=== PATIENT | male | born 1975 | race Caucasian/White ===

== ENCOUNTER 2016-06-03 07:09 | Inpatient (IN) | payer MEDICARE, MEDICAID ==
[2016-06-03] VITALS (15 sets, daily range): BP systolic 120–158; BP diastolic 72–98
[~2016-06-03] VITALS: Ht 167.6 cm; Wt 58.6 kg
[~2016-06-03 07:09] MED LIST: AMLO10TA80 PO; ATOR10TA PO; CARV12.545 PO; LOSA100T14 PO; MINO2.5T2 PO; PROT40 PO; SEVE800T8 PO; SUCR1ORA2 PO; ZOLP5TAB2 PO
[2016-06-03] MEDS ORDERED: ONDANSETRON HCL 4MG/2ML VIAL IV STA (08:27)
[2016-06-03] MEDS ORDERED: PANTOPRAZOLE 80 MG in SODIUM CHLORIDE 0.9% 100 ML IV STA (08:27)
[2016-06-03] MEDS ORDERED: PANTOPRAZOLE SODIUM 40 MG/VIAL IV STA (08:27)
[2016-06-03] MEDS ORDERED: MORPHINE SULFATE 4 MG/ML CPJ (NOT FOR IM USE) IV STA (08:27)
[2016-06-03] MEDS ORDERED: SODIUM CHLORIDE 0.9% 1000ML BAG (SEPSIS BOLUS) IV ONE (08:30)
[2016-06-03 08:46] LABS: MEAN CORPUSCULAR HEMOGLOBIN 32.3 pg (28.0-32.0); MEAN CORPUSCULAR HGB CONC 33.9 g/dL (31.0-37.0); MEAN CORPUSCULAR VOLUME 95.1 fL (80.0-94.0); MEAN PLATELET VOLUME 7.2 fl (7.4-10.4); PLATELET 113 x1000/uL (130-400); RED BLOOD CELL COUNT 1.72 mill/uL (4.7-6.1); RED CELL DISTRIBUTION WIDTH 16.5 % (11.6-14.6)
[2016-06-03 08:55] LABS: PARTIAL THROMBOPLASTIN TIME 33.6 sec (24.0-34.0); PROTHROMBIN TIME 10.8 sec
[2016-06-03 08:57] LABS: DIFFERENTIAL COMMENT 1
[2016-06-03 09:03] LABS: HEMATOCRIT. 16.4 % (42.0-52.0); HEMOGLOBIN. 5.6 g/dL (14.0-18.0)
[2016-06-03 09:07] LABS: ALANINE AMINOTRANSFERASE 41 IU/L (13-61); ALBUMIN 3.1 g/dL (3.4-5.0); ANION GAP 29; CALCIUM 7.8 mg/dL (8.5-10.1); CARBON DIOXIDE 11 mEq/L (21-32); CHLORIDE 97 mEq/L (98-107); INDEX HEMOLYSI 1 (1-3); INDEX ICTERIC 1 (1-4); INDEX LIPEMIC 1 (1-3)
[2016-06-03] MEDS ORDERED: PANTOPRAZOLE SODIUM 40 MG/VIAL IV ONE (09:11)
[2016-06-03 09:14] LABS: eGFR 2 mL/min (>60)
[2016-06-03 09:16] LABS: UREA NITROGEN BLOOD 146 mg/dL (7-21)
[2016-06-03 09:25] LABS: ANISOCYTOSIS 1+; PLATELET ESTIMATE SLIGHTLY DECREASED
[2016-06-03] MEDS ORDERED: POTASSIUM CHLORIDE 20MEQ/15ML UDC PO ONE (09:30)
[2016-06-03] MEDS ORDERED: POTASSIUM CHLORIDE 20 MEQ/PACKET PO ONE (09:45)
[2016-06-03] MEDS ORDERED: MAGNESIUM/ALUMINUM HYDROXIDE/SIMETHICONE 30ML UDC PO PRN (10:15)
[2016-06-03] MEDS ORDERED: ONDANSETRON HCL 4MG/2ML VIAL IV PRN (10:15)
[2016-06-03] MEDS ORDERED: DIPHENHYDRAMINE 50MG/ML VIAL IV PRN (10:15)
[2016-06-03] MEDS ORDERED: DOCUSATE SODIUM 100MG CAPSULE PO PRN (10:15)
[2016-06-03] MEDS ORDERED: ACETAMINOPHEN 325MG TABLET PO PRN (10:15)
[2016-06-03] MEDS ORDERED: GUAIFENESIN 200MG/10ML SUGAR FREE UDC PO PRN (10:15)
[2016-06-03] MEDS ORDERED: CLONIDINE 0.1MG TABLET PO PRN (10:15)
[2016-06-03] MEDS ORDERED: IPRATROPIUM/ALBUTEROL 0.5-3(2.5)MG/3ML NEB INH PRN (10:15)
[2016-06-03] MEDS ORDERED: NITROGLYCERIN 0.4MG TABLET SL SL PRN (10:15)
[2016-06-03] MEDS ORDERED: MANNITOL 12.5G (25%) VIAL 50ML IV NR (11:45)
[2016-06-03] MEDS: SEVELAMER CARBONATE 800 MG TABLET PO SCH ×2 (13:00→17:40)
[2016-06-03] MEDS: HYDRALAZINE HCL 50MG TABLET PO SCH ×2 (14:00→21:28)
[2016-06-03] MEDS ORDERED: PANTOPRAZOLE 80 MG in SODIUM CHLORIDE 0.9% 80 ML IV SCH (14:00)
[2016-06-03] MEDS: MORPHINE SULFATE 4 MG/ML CPJ (NOT FOR IM USE) IV PRN ×2 (17:40→23:41)
[2016-06-03 20:16] LABS: HEMATOCRIT 24.3 % (42.0-52.0); HEMOGLOBIN 8.3 g/dL (14.0-18.0)
[2016-06-03] MEDS ORDERED: EPOETIN ALFA 4000UNITS/ML VIAL SUBCUT SCH (21:00)
[2016-06-03] MEDS: ZOLPIDEM TARTRATE 5MG TABLET PO PRN (21:28)
[2016-06-03] MEDS: PANTOPRAZOLE 80 MG in SODIUM CHLORIDE 0.9% 80 ML IV SCH (22:25)
[2016-06-04] VITALS (15 sets, daily range): BP systolic 112–155; BP diastolic 64–90
[2016-06-04 06:10] LABS: HEMOGLOBIN. 8.3 g/dL (14.0-18.0); MEAN CORPUSCULAR HEMOGLOBIN 30.9 pg (28.0-32.0); MEAN CORPUSCULAR HGB CONC 34.5 g/dL (31.0-37.0); MEAN CORPUSCULAR VOLUME 89.6 fL (80.0-94.0); MEAN PLATELET VOLUME 7.6 fl (7.4-10.4); PLATELET 108 x1000/uL (130-400); RED BLOOD CELL COUNT 2.68 mill/uL (4.7-6.1); RED CELL DISTRIBUTION WIDTH 15.1 % (11.6-14.6)
[2016-06-04] MEDS: MORPHINE SULFATE 4 MG/ML CPJ (NOT FOR IM USE) IV PRN (06:21)
[2016-06-04] MEDS: HYDRALAZINE HCL 50MG TABLET PO SCH ×3 (06:22→21:07)
[2016-06-04 06:51] LABS: CALCIUM 7.9 mg/dL (8.5-10.1); MAGNESIUM 2.2 mg/dL (1.8-2.4); PHOSPHORUS 4.6 mg/dL (2.5-4.9)
[2016-06-04 06:52] LABS: DIFFERENTIAL COMMENT 1
[2016-06-04] MEDS: SEVELAMER CARBONATE 800 MG TABLET PO SCH ×3 (08:00→17:50)
[2016-06-04] MEDS: FOLIC ACID/VITAMIN B COMP W-C TABLET PO SCH (08:12)
[2016-06-04] MEDS: AMLODIPINE 10MG TABLET PO SCH (08:12)
[2016-06-04] MEDS: PANTOPRAZOLE SODIUM 40 MG/VIAL IV SCH ×2 (08:15→20:38)
[2016-06-04] MEDS: PANTOPRAZOLE 80 MG in SODIUM CHLORIDE 0.9% 80 ML IV SCH (09:08)
[2016-06-04] MEDS ORDERED: POTASSIUM CHLORIDE INJ 40 MEQ in DEXT 5% WATER 250 ML IV ONE (10:30)
[2016-06-04] MEDS ORDERED: SODIUM CHLORIDE 0.9% 10ML VIAL ONE (10:35)
[2016-06-04] MEDS ORDERED: SIMETHICONE 40 MG/0.6 ML 30ML ONE ×2 (10:35→14:30)
[2016-06-04 10:53] LABS: PLATELET ESTIMATE DECREASED
[2016-06-04] MEDS: MORPHINE SULFATE 2 MG/ML CPJ (NOT FOR IM USE) IV PRN ×2 (13:07→19:04)
[2016-06-04] MEDS ORDERED: MIDAZOLAM HCL 5 MG/5 ML VIAL ONE (14:30)
[2016-06-04] MEDS ORDERED: FENTANYL CITRATE/PF 50MCG/ML 2ML VIAL ONE (14:30)
[2016-06-04] MEDS ORDERED: FENTANYL CITRATE/PF 50MCG/ML 2ML VIAL IV PRN (14:37)
[2016-06-04] MEDS ORDERED: MIDAZOLAM HCL 5 MG/5 ML VIAL IV PRN (14:37)
[2016-06-04] MEDS: ZOLPIDEM TARTRATE 5MG TABLET PO PRN (20:38)
[2016-06-05] VITALS (9 sets, daily range): BP systolic 110–140; BP diastolic 66–90
[2016-06-05] MEDS: MORPHINE SULFATE 2 MG/ML CPJ (NOT FOR IM USE) IV PRN ×3 (02:09→15:12)
[2016-06-05] MEDS: TRAMADOL 50MG TABLET PO PRN ×2 (04:56→15:11)
[2016-06-05] MEDS: HYDRALAZINE HCL 50MG TABLET PO SCH ×2 (06:00→15:09)
[2016-06-05] MEDS: FOLIC ACID/VITAMIN B COMP W-C TABLET PO SCH (08:43)
[2016-06-05] MEDS: PANTOPRAZOLE SODIUM 40 MG/VIAL IV SCH (08:43)
[2016-06-05] MEDS: AMLODIPINE 10MG TABLET PO SCH (08:47)
[2016-06-05] MEDS: SEVELAMER CARBONATE 800 MG TABLET PO SCH ×2 (08:54→13:07)
[2016-06-05 12:57] LABS: HEMATOCRIT. 26.4 % (42.0-52.0); HEMOGLOBIN. 9.2 g/dL (14.0-18.0); MEAN CORPUSCULAR HEMOGLOBIN 31.2 pg (28.0-32.0); MEAN CORPUSCULAR HGB CONC 34.7 g/dL (31.0-37.0); MEAN CORPUSCULAR VOLUME 89.7 fL (80.0-94.0); MEAN PLATELET VOLUME 7.8 fl (7.4-10.4); PLATELET 116 x1000/uL (130-400); RED BLOOD CELL COUNT 2.94 mill/uL (4.7-6.1); RED CELL DISTRIBUTION WIDTH 15.8 % (11.6-14.6); WHITE BLOOD COUNT 3.8 x1000/uL (4.5-11.0)
[2016-06-05 13:00] LABS: DIFFERENTIAL COMMENT 1
[2016-06-05 13:13] LABS: ALANINE AMINOTRANSFERASE 26 IU/L (13-61); ALBUMIN 2.2 g/dL (3.4-5.0); ANION GAP 13; CALCIUM 7.3 mg/dL (8.5-10.1); CARBON DIOXIDE 25 mEq/L (21-32); CHLORIDE 102 mEq/L (98-107); INDEX HEMOLYSI 1 (1-3); INDEX ICTERIC 1 (1-4); INDEX LIPEMIC 1 (1-3); UREA NITROGEN BLOOD 29 mg/dL (7-21); eGFR 7 mL/min (>60)
[2016-06-05 13:24] LABS: PLATELET ESTIMATE SLIGHTLY DECREASED
== END 2016-06-05 18:00 | disposition left against medical advice (07) | DRG 368 ==
LOC: ER 07:51 → 5EST 09:56
PROVIDERS: ADMIT Internal Medicine; ATTEND Internal Medicine
PROC: 30233N1 Transfusion of Nonautologous Red Blood Cells into Peripheral Vein, Percutaneous Approach (ICD-10-PCS; 2016-06-03)
PROC: 5A1D60Z (ICD-10-PCS; 2016-06-03)
PROC: 0W9G3ZX Drainage of Peritoneal Cavity, Percutaneous Approach, Diagnostic (ICD-10-PCS; 2016-06-04)
PROC: 0DB68ZX Excision of Stomach, Via Natural or Artificial Opening Endoscopic, Diagnostic (ICD-10-PCS; principal; 2016-06-04 15:00)
DX: K22.6 Gastro-esophageal laceration-hemorrhage syndrome (principal); N18.6 End stage renal disease; D62 Acute posthemorrhagic anemia; E87.1 Hypo-osmolality and hyponatremia; I12.0 Hypertensive chronic kidney disease with stage 5 chronic kidney disease or end stage renal disease; K76.6 Portal hypertension; N03.9 Chronic nephritic syndrome with unspecified morphologic changes; N25.81 Secondary hyperparathyroidism of renal origin; E44.0 Moderate protein-calorie malnutrition; D53.9 Nutritional anemia, unspecified; E87.6 Hypokalemia; F10.20 Alcohol dependence, uncomplicated; I44.0 Atrioventricular block, first degree; I51.7 Cardiomegaly; K29.50 Unspecified chronic gastritis without bleeding; K21.0 Gastro-esophageal reflux disease with esophagitis; M54.9 Dorsalgia, unspecified; K29.80 Duodenitis without bleeding; K43.9 Ventral hernia without obstruction or gangrene; K44.9 Diaphragmatic hernia without obstruction or gangrene; K70.31 Alcoholic cirrhosis of liver with ascites; K76.0 Fatty (change of) liver, not elsewhere classified; K80.20 Calculus of gallbladder without cholecystitis without obstruction; Z82.49 Family history of ischemic heart disease and other diseases of the circulatory system; Z87.19 Personal history of other diseases of the digestive system; Z91.19 Patient's noncompliance with other medical treatment and regimen; Z99.2 Dependence on renal dialysis; Z98.890 Other specified postprocedural states
CPT/HCPCS: 36415; 36430; 49083; 71010; 80048; 80053; 80061; 82306; 83036; 83735; 83970; 84100; 85014; 85018; 85025; 85610; 85730; 86850; 86900; 86920; 87493; 88305; 88312; 88313; 93005; 96374; 96375; 99285; A4216; C9113; J0885; J2150; J2250; J2270; J2405; J3010; J3480; J7030; J7050; J7060; P9016

== ENCOUNTER 2016-08-30 04:07 | Emergency (ER) | payer MEDICARE, MEDICAID ==
[~2016-08-30] VITALS: Ht 170.2 cm; Wt 57.0 kg
[~2016-08-30 04:07] MED LIST changes: -ATOR10TA PO; +HYDR-523 PO
[2016-08-30] MEDS ORDERED: SODIUM CHLORIDE 0.9% 1,000 ML IV ONE (06:21)
[2016-08-30] MEDS ORDERED: MORPHINE SULFATE 4 MG/ML CPJ (NOT FOR IM USE) IV STA (06:21)
[2016-08-30] MEDS ORDERED: ONDANSETRON HCL 4MG/2ML VIAL IV STA (06:21)
[2016-08-30 06:43] LABS: BASOPHILS % 1.3 % (0.0-2.0); EOSINOPHILS % 1.2 % (0.0-5.0); HEMATOCRIT. 35.2 % (42.0-52.0); HEMOGLOBIN. 12.1 g/dL (14.0-18.0); LYMPHOCYTES % 20.6 % (20.0-50.0); MEAN CORPUSCULAR HEMOGLOBIN 31.2 pg (28.0-32.0); MEAN CORPUSCULAR VOLUME 90.7 fL (80.0-94.0); MEAN PLATELET VOLUME 8.9 fl (7.4-10.4); MONOCYTES % 5.4 % (2.0-8.0); NEUTROPHILS % 71.5 % (40.0-76.0); PLATELET 201 x1000/uL (130-400); RED BLOOD CELL COUNT 3.89 mill/uL (4.7-6.1); RED CELL DISTRIBUTION WIDTH 16.6 % (11.6-14.6)
[2016-08-30] MEDS ORDERED: PANTOPRAZOLE SODIUM 40 MG/VIAL IV STA (06:43)
[2016-08-30 06:50] LABS: INR 1.1; PROTHROMBIN TIME 11.8 sec
[2016-08-30 07:00] LABS: CHLORIDE 101 mEq/L (98-107)
[2016-08-30 07:22] LABS: CARBON DIOXIDE 25 mEq/L (21-32)
[2016-08-30] MEDS ORDERED: MORPHINE SULFATE 4 MG/ML CPJ (NOT FOR IM USE) IV ONE ×2 (07:30→09:45)
[2016-08-30 10:41] VITALS: BP 140/88
[2016-08-30] MEDS ORDERED: SODIUM BICARBONATE 4% (2.4MEQ) 5ML VIAL IV ONE (12:27)
[2016-08-30] MEDS ORDERED: LIDOCAINE HCL 1% 20ML VIAL (Pyxis) INJ ONE (12:27)
== END 2016-08-30 12:53 | disposition home or self-care (01) ==
LOC: ER 07:13
DX: K46.9 Unspecified abdominal hernia without obstruction or gangrene (principal); R18.8 Other ascites; N18.6 End stage renal disease; Z99.2 Dependence on renal dialysis
CPT/HCPCS: 36415; 49083; 74176; 80053; 83690; 85025; 85610; 86850; 86900; 86901; 87070; 87205; 88108; 88312; 89050; 93005; 96361; 96374; 96375; 96376; 99285; C9113; J2270; J2405; J3490; J7030

== ENCOUNTER 2016-09-04 19:42 | Inpatient (IN) | payer MEDICARE, MEDICAID ==
[~2016-09-04] VITALS: Ht 167.6 cm; Wt 54.0 kg
[2016-09-04] MEDS ORDERED: ONDANSETRON HCL 4MG/2ML VIAL IV STA (21:09)
[2016-09-04] MEDS ORDERED: MORPHINE SULFATE 4 MG/ML CPJ (NOT FOR IM USE) IV STA (21:09)
[2016-09-04 21:34] LABS: BASOPHILS % 1.4 % (0.0-2.0); CHLORIDE 101 mEq/L (98-107); EOSINOPHILS % 0.3 % (0.0-5.0); LYMPHOCYTES % 37.2 % (20.0-50.0); MEAN CORPUSCULAR HEMOGLOBIN 31.9 pg (28.0-32.0); MEAN CORPUSCULAR VOLUME 94.1 fL (80.0-94.0); MEAN PLATELET VOLUME 8.1 fl (7.4-10.4); MONOCYTES % 8.6 % (2.0-8.0); NEUTROPHILS % 52.5 % (40.0-76.0); PLATELET 230 x1000/uL (130-400); RED BLOOD CELL COUNT 2.01 mill/uL (4.7-6.1); RED CELL DISTRIBUTION WIDTH 20.4 % (11.6-14.6)
[2016-09-04 21:37] LABS: HEMATOCRIT. 18.9 % (42.0-52.0); HEMOGLOBIN. 6.4 g/dL (14.0-18.0)
[2016-09-04 21:38] LABS: INR 1.2; PROTHROMBIN TIME 12.8 sec
[2016-09-04 21:41] LABS: CARBON DIOXIDE 32 mEq/L (21-32)
[2016-09-04 21:43] LABS: ETHANOL BLOOD < 10 mg/dL
[2016-09-04 21:46] LABS: TROPONIN I 0.16 ng/mL (0.00-0.04)
[2016-09-04 21:49] LABS: BG BASE EXCESS 8.7 mmol/L (-2.0-2.0); BG CARBOXYHEMOGLOBIN 0.5 % (0.5-1.5); BG DEOXYHEMOGLOBIN 3.5 % (0.0-5.0); BG FRACTION INSPIRED OXYGEN 21; BG HCO3 ACT 31.9 mmol/L (22.0-26.0); BG METHEMOGLOBIN 0.2 % (0.0-1.5); BG OXYGEN SATURATION 96.5 % (92.0-98.5); BG OXYHEMOGLOBIN 95.8 % (94.0-97.0); BG PCO2 37.6 mmHg (35.0-45.0); BG PH 7.546 (7.350-7.450); BG PO2 90.7 mmHg (75.0-100.0); BG SAMPLE SITE RIGHT RADIAL; BG TOTAL HEMOGLOBIN 6.3 g/dL (12.0-18.0); BG VENT MODE ROOM AIR
[2016-09-04] MEDS ORDERED: PANTOPRAZOLE SODIUM 40 MG/VIAL IV STA (22:45)
[2016-09-04] MEDS ORDERED: ACETAMINOPHEN 325MG TABLET PO PRN (23:00)
[2016-09-04] MEDS ORDERED: DOCUSATE SODIUM 100MG CAPSULE PO PRN (23:00)
[2016-09-04] MEDS ORDERED: NA PHOS,M-B/NA PHOS,DI-BA ENEMA 118ML PR PRN (23:00)
[2016-09-04] MEDS ORDERED: IPRATROPIUM/ALBUTEROL 0.5-3(2.5)MG/3ML NEB INH PRN (23:00)
[2016-09-04] MEDS ORDERED: ONDANSETRON HCL 4MG/2ML VIAL IV PRN (23:00)
[2016-09-04] MEDS ORDERED: GUAIFENESIN 200MG/10ML SUGAR FREE UDC PO PRN (23:00)
[2016-09-04] MEDS ORDERED: MAGNESIUM/ALUMINUM HYDROXIDE/SIMETHICONE 30ML UDC PO PRN (23:00)
[2016-09-04] MEDS ORDERED: CLONIDINE 0.1MG TABLET PO PRN (23:00)
[2016-09-04] MEDS ORDERED: LORAZEPAM 2MG/ML CPJ IV PRN (23:00)
[2016-09-04] MEDS ORDERED: OCTREOTIDE ACETATE 50 MCG/ML 1ML IV NR (23:22)
[2016-09-05] VITALS (22 sets, daily range): BP systolic 120–166; BP diastolic 75–99
[2016-09-05] MEDS ORDERED: SODIUM CHLORIDE 0.45% 1,000 ML IV SCH (00:17)
[2016-09-05] MEDS: HYDROMORPHONE HCL/PF 2MG/ML CPJ IV PRN ×5 (00:29→11:03)
[2016-09-05] MEDS: DIPHENHYDRAMINE 50MG/ML VIAL IV PRN ×4 (00:44→21:38)
[2016-09-05 08:15] LABS: HEMATOCRIT. 27.2 % (42.0-52.0); HEMOGLOBIN. 9.3 g/dL (14.0-18.0); MEAN CORPUSCULAR HEMOGLOBIN 31.2 pg (28.0-32.0); MEAN CORPUSCULAR VOLUME 91.2 fL (80.0-94.0); MEAN PLATELET VOLUME 8.2 fl (7.4-10.4); PLATELET 216 x1000/uL (130-400); RED BLOOD CELL COUNT 2.98 mill/uL (4.7-6.1); RED CELL DISTRIBUTION WIDTH 16.8 % (11.6-14.6)
[2016-09-05] MEDS: MULTIVITAMINS,THER W-MINERALS TABLET PO SCH (08:44)
[2016-09-05] MEDS: FOLIC ACID 1MG TABLET PO SCH (08:45)
[2016-09-05] MEDS: FERROUS SULFATE 325MG TABLET PO SCH (08:45)
[2016-09-05 08:47] LABS: CARBON DIOXIDE 34 mEq/L (21-32); CHLORIDE 102 mEq/L (98-107); HDL CHOLESTEROL 33 mg/dL (40-59); LDL CHOLESTEROL 52 mg/dL (5-100)
[2016-09-05 11:12] LABS: PLATELET ESTIMATE NORMAL
[2016-09-05] MEDS: HYDROCODONE/ACETAMINOPHEN 10/325MG TABLET PO PRN (18:30)
[2016-09-05] MEDS: LOSARTAN POTASSIUM 50 MG TABLET PO SCH ×2 (18:31→20:36)
[2016-09-05] MEDS: CARVEDILOL 6.25 MG TABLET PO SCH (20:38)
[2016-09-06] VITALS (10 sets, daily range): BP systolic 123–153; BP diastolic 77–91
[2016-09-06] MEDS: HYDROCODONE/ACETAMINOPHEN 10/325MG TABLET PO PRN ×3 (04:13→16:05)
[2016-09-06 06:57] LABS: HEMATOCRIT. 25.7 % (42.0-52.0); HEMOGLOBIN. 8.7 g/dL (14.0-18.0); MEAN CORPUSCULAR HEMOGLOBIN 31.2 pg (28.0-32.0); MEAN PLATELET VOLUME 8.3 fl (7.4-10.4); PLATELET 205 x1000/uL (130-400); RED BLOOD CELL COUNT 2.79 mill/uL (4.7-6.1); RED CELL DISTRIBUTION WIDTH 16.7 % (11.6-14.6)
[2016-09-06 07:25] LABS: CARBON DIOXIDE 33 mEq/L (21-32); CHLORIDE 104 mEq/L (98-107); CREATINE KINASE 25 IU/L (39-308); CREATINE KINASE MB FRACTION 1.7 ng/mL (0.5-3.6); HDL CHOLESTEROL 35 mg/dL (40-59); LDL CHOLESTEROL 49 mg/dL (5-100); TROPONIN I 0.21 ng/mL (0.00-0.04)
[2016-09-06 08:38] LABS: PLATELET ESTIMATE NORMAL
[2016-09-06] MEDS: FERROUS SULFATE 325MG TABLET PO SCH (09:26)
[2016-09-06] MEDS: MULTIVITAMINS,THER W-MINERALS TABLET PO SCH (09:26)
[2016-09-06] MEDS: FOLIC ACID 1MG TABLET PO SCH (09:27)
[2016-09-06] MEDS: CARVEDILOL 6.25 MG TABLET PO SCH ×2 (09:27→20:52)
[2016-09-06] MEDS: LOSARTAN POTASSIUM 50 MG TABLET PO SCH ×2 (09:27→20:52)
[2016-09-06] MEDS: DIPHENHYDRAMINE 50MG/ML VIAL IV PRN ×2 (09:37→16:05)
[2016-09-06] MEDS ORDERED: SIMETHICONE 40 MG/0.6 ML 30ML ONE (13:39)
[2016-09-06] MEDS ORDERED: SODIUM CHLORIDE 0.9% 10ML VIAL ONE (13:39)
[2016-09-06] MEDS ORDERED: MIDAZOLAM HCL 5 MG/5 ML VIAL ONE (13:48)
[2016-09-06] MEDS ORDERED: FENTANYL CITRATE/PF 50MCG/ML 2ML VIAL ONE (13:48)
[2016-09-06] MEDS ORDERED: FENTANYL CITRATE/PF 50MCG/ML 2ML VIAL IV ONE (14:00)
[2016-09-06] MEDS ORDERED: MIDAZOLAM HCL 2 MG/2 ML VIAL IV PRN (14:02)
== END 2016-09-06 21:00 | disposition left against medical advice (07) | DRG 380 ==
LOC: ER 20:01 → 3WST 22:45 → EDBEDREQSVC 22:47 → EDBEDREQ 22:47 → ENRESERV 22:52
PROVIDERS: ADMIT Internal Medicine; ATTEND Internal Medicine
PROC: 5A1D00Z (ICD-10-PCS; principal; 2016-09-05)
PROC: 30233N1 Transfusion of Nonautologous Red Blood Cells into Peripheral Vein, Percutaneous Approach (ICD-10-PCS; 2016-09-05)
PROC: 0DB68ZX Excision of Stomach, Via Natural or Artificial Opening Endoscopic, Diagnostic (ICD-10-PCS; 2016-09-06)
DX: K22.11 Ulcer of esophagus with bleeding (principal); E43 Unspecified severe protein-calorie malnutrition; N18.6 End stage renal disease; K76.6 Portal hypertension; Q61.3 Polycystic kidney, unspecified; J90 Pleural effusion, not elsewhere classified; Z68.1 Body mass index [BMI] 19.9 or less, adult; I13.11 Hypertensive heart and chronic kidney disease without heart failure, with stage 5 chronic kidney disease, or end stage renal disease; K92.1 Melena; K92.0 Hematemesis; Z99.2 Dependence on renal dialysis; D72.819 Decreased white blood cell count, unspecified; E83.51 Hypocalcemia; F10.10 Alcohol abuse, uncomplicated; G89.4 Chronic pain syndrome; K31.89 Other diseases of stomach and duodenum; K29.80 Duodenitis without bleeding; K43.9 Ventral hernia without obstruction or gangrene; N26.1 Atrophy of kidney (terminal); D64.9 Anemia, unspecified; K70.31 Alcoholic cirrhosis of liver with ascites; K80.20 Calculus of gallbladder without cholecystitis without obstruction; K21.0 Gastro-esophageal reflux disease with esophagitis; K46.9 Unspecified abdominal hernia without obstruction or gangrene; M54.5 Low back pain; Z82.49 Family history of ischemic heart disease and other diseases of the circulatory system; Z87.891 Personal history of nicotine dependence; Z83.3 Family history of diabetes mellitus; Z79.899 Other long term (current) drug therapy; Z87.19 Personal history of other diseases of the digestive system; Z91.19 Patient's noncompliance with other medical treatment and regimen
CPT/HCPCS: 36415; 36430; 36600; 71010; 74176; 80048; 80053; 80061; 82375; 82550; 82553; 82805; 83605; 83690; 83735; 84443; 84484; 85025; 85044; 85610; 85730; 86850; 86900; 86920; 88305; 88312; 88313; 93005; 93970; 96365; 96375; 99291; A4216; C9113; G0482; J1170; J1200; J2250; J2270; J2354; J2405; J3010; J7030; J7050; P9016

== ENCOUNTER 2016-12-29 08:46 | Inpatient (IN) | payer MEDICARE, MEDICAID ==
[~2016-12-29] VITALS: Ht 167.6 cm; Wt 54.0 kg
[2016-12-29 09:54] LABS: BASOPHILS % 2.1 % (0.0-2.0); EOSINOPHILS % 0.1 % (0.0-5.0); INR 1.3; LYMPHOCYTES % 20.4 % (20.0-50.0); MEAN CORPUSCULAR HEMOGLOBIN 28.4 pg (28.0-32.0); MEAN CORPUSCULAR VOLUME 83.8 fL (80.0-94.0); MEAN PLATELET VOLUME 6.4 fl (7.4-10.4); MONOCYTES % 6.6 % (2.0-8.0); NEUTROPHILS % 70.8 % (40.0-76.0); PLATELET 197 x1000/uL (130-400); RED BLOOD CELL COUNT 1.89 mill/uL (4.7-6.1); RED CELL DISTRIBUTION WIDTH 16.2 % (11.6-14.6)
[2016-12-29 09:59] LABS: HEMATOCRIT. 15.8 % (42.0-52.0); HEMOGLOBIN. 5.4 g/dL (14.0-18.0)
[2016-12-29 10:01] LABS: CARBON DIOXIDE 20 mEq/L (21-32); CHLORIDE 98 mEq/L (98-107)
[2016-12-29] MEDS ORDERED: POTASSIUM CHLORIDE 20MEQ TABLET SR PO ONE (10:45)
[2016-12-29] MEDS ORDERED: KCL 10MEQ/50ML PREMIX 100 ML IV SCH (10:45)
[2016-12-29] MEDS ORDERED: MORPHINE SULFATE 4 MG/ML CPJ (NOT FOR IM USE) IV ONE (10:45)
[2016-12-29] MEDS ORDERED: PANTOPRAZOLE SODIUM 40 MG/VIAL IV ONE (10:45)
[2016-12-29] MEDS ORDERED: ONDANSETRON HCL 4MG/2ML VIAL IV PRN (12:15)
[2016-12-29] MEDS: MORPHINE SULFATE 2 MG/ML CPJ (NOT FOR IM USE) IV PRN ×3 (13:45→21:45)
[2016-12-29 15:14] LABS: TROPONIN I 0.91 ng/mL (0.00-0.04)
[2016-12-29 16:00] VITALS: BP 158/95
[2016-12-29 16:54] VITALS: BP 176/107
[2016-12-29 18:00] VITALS: BP 169/99
[2016-12-29] MEDS: SUCRALFATE 1 G/10 ML UDC PO SCH ×2 (18:05→21:40)
[2016-12-29] MEDS: NYSTATIN 100,000 UNITS/ML 5ML UDC SSW SCH ×2 (18:05→21:40)
[2016-12-29] MEDS: PANTOPRAZOLE SODIUM 40 MG/VIAL IV SCH (18:05)
[2016-12-29] MEDS: FLUCONAZOLE 100MG TABLET PO SCH (18:05)
[2016-12-29 20:00] VITALS: BP 161/97
[2016-12-29] MEDS ORDERED: MVI, ADULT NO.1 10 ML, FOLIC ACID 1 MG, THIAMINE HCL 100 MG in SODIUM CHLORIDE 0.9% 1,0... IV NR ×4 (20:00)
[2016-12-29 20:27] LABS: HEMOGLOBIN 6.2 g/dL (14.0-18.0)
[2016-12-29 20:28] LABS: HEMATOCRIT 18.4 % (42.0-52.0)
[2016-12-29] MEDS ORDERED: EPOETIN ALFA 10000UNITS/ML VIAL SUBCUT SCH (21:00)
[2016-12-29] MEDS: LORAZEPAM 1MG TABLET PO PRN (21:40)
[2016-12-29 22:00] VITALS: BP 171/105
[2016-12-29 23:57] VITALS: BP 146/94
[2016-12-30] VITALS (16 sets, daily range): BP systolic 132–161; BP diastolic 84–153
[2016-12-30 00:48] LABS: TROPONIN I 0.79 ng/mL (0.00-0.04)
[2016-12-30] MEDS: DEXT 5%/0.45% NACL KCL 20MEQ/L 1,000 ML IV SCH ×3 (04:05→21:16)
[2016-12-30] MEDS: PANTOPRAZOLE SODIUM 40 MG/VIAL IV SCH ×2 (06:00→17:00)
[2016-12-30 07:40] LABS: CARBON DIOXIDE 24 mEq/L (21-32); CHLORIDE 105 mEq/L (98-107); LDL CHOLESTEROL 28 mg/dL (5-100)
[2016-12-30 07:48] LABS: HDL CHOLESTEROL 33 mg/dL (40-59)
[2016-12-30 08:10] LABS: BASOPHILS % 1.9 % (0.0-2.0); EOSINOPHILS % 0.8 % (0.0-5.0); LYMPHOCYTES % 21.8 % (20.0-50.0); MEAN CORPUSCULAR HEMOGLOBIN 28.9 pg (28.0-32.0); MEAN CORPUSCULAR VOLUME 84.2 fL (80.0-94.0); MONOCYTES % 9.8 % (2.0-8.0); NEUTROPHILS % 65.7 % (40.0-76.0); PLATELET 157 x1000/uL (130-400); RED CELL DISTRIBUTION WIDTH 15.4 % (11.6-14.6)
[2016-12-30 08:26] LABS: HEMATOCRIT. 20.2 % (42.0-52.0); HEMOGLOBIN. 6.9 g/dL (14.0-18.0)
[2016-12-30 08:41] LABS: FOLIC ACID (FOLATE) SERUM 16.3 ng/mL (>5.38)
[2016-12-30] MEDS: NYSTATIN 100,000 UNITS/ML 5ML UDC SSW SCH ×4 (09:28→21:42)
[2016-12-30] MEDS: SUCRALFATE 1 G/10 ML UDC PO SCH ×4 (09:28→20:03)
[2016-12-30] MEDS: FOLIC ACID/VITAMIN B COMP W-C TABLET PO SCH (09:28)
[2016-12-30] MEDS: FLUCONAZOLE 100MG TABLET PO SCH (09:28)
[2016-12-30 09:30] LABS: BG BASE EXCESS -3.4 mmol/L (-2.0-2.0); BG CARBOXYHEMOGLOBIN 0.3 % (0.5-1.5); BG DEOXYHEMOGLOBIN 2.8 % (0.0-5.0); BG FRACTION INSPIRED OXYGEN 21; BG HCO3 ACT 20.2 mmol/L (22.0-26.0); BG METHEMOGLOBIN 0.3 % (0.0-1.5); BG OXYGEN SATURATION 97.2 % (92.0-98.5); BG OXYHEMOGLOBIN 96.6 % (94.0-97.0); BG PCO2 29.8 mmHg (35.0-45.0); BG PH 7.449 (7.350-7.450); BG PO2 106.9 mmHg (75.0-100.0); BG SAMPLE SITE RIGHT RADIAL; BG TOTAL HEMOGLOBIN 6.8 g/dL (12.0-18.0); BG VENT MODE ROOM AIR
[2016-12-30] MEDS: MORPHINE SULFATE 2 MG/ML CPJ (NOT FOR IM USE) IV PRN ×3 (09:35→19:58)
[2016-12-30] MEDS ORDERED: POTASSIUM CHLORIDE 20MEQ TABLET SR PO NR (11:00)
[2016-12-30] MEDS: CARVEDILOL 12.5MG TABLET PO SCH (13:34)
[2016-12-30] MEDS: LOSARTAN POTASSIUM 50 MG TABLET PO SCH (13:34)
[2016-12-30] MEDS: DIPHENHYDRAMINE 50MG/ML VIAL IV PRN ×2 (13:35→19:58)
[2016-12-30] MEDS: LORAZEPAM 1MG TABLET PO PRN (21:36)
[2016-12-31] VITALS (20 sets, daily range): BP systolic 134–164; BP diastolic 74–100
[2016-12-31] MEDS: MORPHINE SULFATE 2 MG/ML CPJ (NOT FOR IM USE) IV PRN ×4 (00:12→16:59)
[2016-12-31] MEDS: DIPHENHYDRAMINE 50MG/ML VIAL IV PRN ×2 (05:16→11:16)
[2016-12-31] MEDS: PANTOPRAZOLE SODIUM 40 MG/VIAL IV SCH ×2 (05:16→16:56)
[2016-12-31] MEDS: SUCRALFATE 1 G/10 ML UDC PO SCH ×3 (06:34→16:56)
[2016-12-31 06:37] LABS: HEMATOCRIT 23.1 % (42.0-52.0); HEMOGLOBIN 7.8 g/dL (14.0-18.0); PLATELET 148 x1000/uL (130-400); RED BLOOD CELL COUNT 2.69 mill/uL (4.7-6.1); RED CELL DISTRIBUTION WIDTH 15.1 % (11.6-14.6)
[2016-12-31 07:09] LABS: CARBON DIOXIDE 19 mEq/L (21-32); CHLORIDE 103 mEq/L (98-107)
[2016-12-31] MEDS: NYSTATIN 100,000 UNITS/ML 5ML UDC SSW SCH ×3 (08:31→16:56)
[2016-12-31] MEDS: FOLIC ACID/VITAMIN B COMP W-C TABLET PO SCH (08:31)
[2016-12-31] MEDS: FLUCONAZOLE 100MG TABLET PO SCH (08:31)
[2016-12-31] MEDS: LOSARTAN POTASSIUM 50 MG TABLET PO SCH (09:00)
[2016-12-31] MEDS: CARVEDILOL 12.5MG TABLET PO SCH (09:00)
[2016-12-31] MEDS: DEXT 5%/0.45% NACL KCL 20MEQ/L 1,000 ML IV SCH ×2 (10:00→11:43)
[2016-12-31] MEDS ORDERED: AMLODIPINE 5MG TABLET PO SCH (11:00)
[2017-01-01] MEDS ORDERED: LOSARTAN POTASSIUM 100 MG TABLET PO SCH (09:00)
== END 2016-12-31 19:30 | disposition home health service (06) | DRG 377 ==
LOC: ER 08:46 → 5EST 10:38 → ENRESERV 13:55 → CANBEDREQ 16:04 → 5EST 21:09
PROVIDERS: ADMIT Internal Medicine; ATTEND Internal Medicine
PROC: 30233N1 Transfusion of Nonautologous Red Blood Cells into Peripheral Vein, Percutaneous Approach (ICD-10-PCS; principal; 2016-12-29)
DX: K92.2 Gastrointestinal hemorrhage, unspecified (principal); I50.33 Acute on chronic diastolic (congestive) heart failure; E43 Unspecified severe protein-calorie malnutrition; I13.2 Hypertensive heart and chronic kidney disease with heart failure and with stage 5 chronic kidney disease, or end stage renal disease; N17.9 Acute kidney failure, unspecified; B37.81 Candidal esophagitis; D69.6 Thrombocytopenia, unspecified; R64 Cachexia; N18.6 End stage renal disease; N25.81 Secondary hyperparathyroidism of renal origin; J98.11 Atelectasis; D62 Acute posthemorrhagic anemia; Z68.1 Body mass index [BMI] 19.9 or less, adult; Z53.21 Procedure and treatment not carried out due to patient leaving prior to being seen by health care provider; D63.8 Anemia in other chronic diseases classified elsewhere; E87.6 Hypokalemia; F17.210 Nicotine dependence, cigarettes, uncomplicated; G89.29 Other chronic pain; K70.31 Alcoholic cirrhosis of liver with ascites; K80.20 Calculus of gallbladder without cholecystitis without obstruction; Z91.19 Patient's noncompliance with other medical treatment and regimen; I25.2 Old myocardial infarction; Z99.2 Dependence on renal dialysis
CPT/HCPCS: 36415; 36600; 71010; 80053; 80061; 82248; 82375; 82550; 82746; 82805; 83735; 84100; 84132; 84443; 84484; 85014; 85018; 85025; 85027; 85610; 86850; 86900; 86920; 93005; 93970; 96361; 96365; 96375; 99291; C9113; J0885; J1200; J2270; J2405; J3411; J3480; J3490; J7030; J7050; P9016

== ENCOUNTER 2017-03-09 04:58 | Inpatient (IN) | payer MEDICARE, MEDICAID ==
[2017-03-09] VITALS (11 sets, daily range): BP systolic 88–135; BP diastolic 46–66
[~2017-03-09] VITALS: Ht 167.6 cm; Wt 56.0 kg
[2017-03-09 06:37] LABS: INR 1.2; PARTIAL THROMBOPLASTIN TIME 37.1 sec (23.4-31.0); PROTHROMBIN TIME 12.8 sec (9.4-11.6)
[2017-03-09 06:52] LABS: CARBON DIOXIDE 14 mEq/L (21-32); CHLORIDE 102 mEq/L (98-107)
[2017-03-09 06:53] LABS: LYMPHOCYTES % 16.4 % (20.0-50.0); MEAN CORPUSCULAR VOLUME 91.6 fL (80.0-94.0); MEAN PLATELET VOLUME 7.9 fl (7.4-10.4); MONOCYTES % 4.6 % (2.0-8.0); PLATELET 135 x1000/uL (130-400); RED BLOOD CELL COUNT 1.34 mill/uL (4.7-6.1); RED CELL DISTRIBUTION WIDTH 15.6 % (11.6-14.6)
[2017-03-09 07:03] LABS: HEMOGLOBIN. 4.2 g/dL (14.0-18.0)
[2017-03-09] MEDS ORDERED: PANTOPRAZOLE 80 MG in SODIUM CHLORIDE 0.9% 100 ML IV SCH ×2 (09:30→11:45)
[2017-03-09] MEDS ORDERED: LIDOCAINE HCL 1% 20ML VIAL (Pyxis) INJ ONE (11:21)
[2017-03-09] MEDS ORDERED: MAGNESIUM/ALUMINUM HYDROXIDE/SIMETHICONE 30ML UDC PO PRN (12:45)
[2017-03-09] MEDS ORDERED: NA PHOS,M-B/NA PHOS,DI-BA ENEMA 118ML PR PRN (12:45)
[2017-03-09] MEDS ORDERED: ACETAMINOPHEN 650MG SUPP PR PRN (12:45)
[2017-03-09] MEDS ORDERED: IPRATROPIUM/ALBUTEROL 0.5-3(2.5)MG/3ML NEB INH PRN (12:45)
[2017-03-09] MEDS ORDERED: ACETAMINOPHEN 650MG/20.3ML UDC GT PRN (12:45)
[2017-03-09] MEDS ORDERED: ACETAMINOPHEN 325MG TABLET PO PRN (12:45)
[2017-03-09] MEDS ORDERED: CLONIDINE 0.1MG TABLET PO PRN (12:45)
[2017-03-09] MEDS ORDERED: DOCUSATE SODIUM 100MG CAPSULE PO PRN (12:45)
[2017-03-09] MEDS ORDERED: GUAIFENESIN 200MG/10ML SUGAR FREE UDC PO PRN (12:45)
[2017-03-09] MEDS ORDERED: MORPHINE SULFATE 2 MG/ML CPJ (NOT FOR IM USE) IV NR (15:00)
[2017-03-09] MEDS: SODIUM CHLORIDE 0.9% INJ 3ML FLUSH IVF SCH ×2 (15:19→22:00)
[2017-03-09 16:17] LABS: TROPONIN I 0.81 ng/mL (0.00-0.04)
[2017-03-09] MEDS ORDERED: FENTANYL CITRATE/PF 50MCG/ML 2ML VIAL ONE (16:29)
[2017-03-09] MEDS ORDERED: MIDAZOLAM HCL 5 MG/5 ML VIAL ONE (16:29)
[2017-03-09] MEDS ORDERED: MIDAZOLAM HCL 5 MG/5 ML VIAL IV PRN (16:33)
[2017-03-09] MEDS ORDERED: SIMETHICONE 40 MG/0.6 ML 30ML ONE (16:38)
[2017-03-09] MEDS: DEXT 5%/0.45% NACL 1000ML 1,000 ML IV SCH (20:40)
[2017-03-09] MEDS: PANTOPRAZOLE SODIUM 40 MG/VIAL IV SCH (20:44)
[2017-03-09] MEDS: DIPHENHYDRAMINE 50MG/ML VIAL IV PRN (20:45)
[2017-03-09] MEDS ORDERED: EPOETIN ALFA 10000UNITS/ML VIAL SUBCUT SCH (21:00)
[2017-03-10] VITALS (13 sets, daily range): BP systolic 80–120; BP diastolic 40–80
[2017-03-10 00:20] LABS: HEMATOCRIT 25.2 % (42.0-52.0); HEMOGLOBIN 9.1 g/dL (14.0-18.0); MEAN CORPUSCULAR VOLUME 83.1 fL (80.0-94.0); PLATELET 115 x1000/uL (130-400); RED BLOOD CELL COUNT 3.04 mill/uL (4.7-6.1); RED CELL DISTRIBUTION WIDTH 13.6 % (11.6-14.6)
[2017-03-10 01:02] LABS: TROPONIN I 0.78 ng/mL (0.00-0.04)
[2017-03-10] MEDS: SODIUM CHLORIDE 0.9% INJ 3ML FLUSH IVF SCH ×3 (06:00→22:30)
[2017-03-10 06:46] LABS: BASOPHILS % 0.6 % (0.0-2.0); HEMATOCRIT. 25.4 % (42.0-52.0); HEMOGLOBIN. 9.1 g/dL (14.0-18.0); LYMPHOCYTES % 22.7 % (20.0-50.0); MEAN CORPUSCULAR HEMOGLOBIN 30.4 pg (28.0-32.0); MEAN CORPUSCULAR VOLUME 84.9 fL (80.0-94.0); MEAN PLATELET VOLUME 9.1 fl (7.4-10.4); MONOCYTES % 7.8 % (2.0-8.0); NEUTROPHILS % 68.9 % (40.0-76.0); PLATELET 128 x1000/uL (130-400); RED BLOOD CELL COUNT 2.99 mill/uL (4.7-6.1); RED CELL DISTRIBUTION WIDTH 13.9 % (11.6-14.6)
[2017-03-10] MEDS: DIPHENHYDRAMINE 50MG/ML VIAL IV PRN ×4 (08:29→22:59)
[2017-03-10] MEDS: FOLIC ACID/VITAMIN B COMP W-C TABLET PO SCH ×2 (08:29→08:39)
[2017-03-10] MEDS: PANTOPRAZOLE SODIUM 40 MG/VIAL IV SCH ×2 (08:29→22:29)
[2017-03-10] MEDS: MORPHINE SULFATE 2 MG/ML CPJ (NOT FOR IM USE) IV PRN ×3 (08:30→22:31)
[2017-03-10 09:17] LABS: CHLORIDE 99 mEq/L (98-107)
[2017-03-10 09:31] LABS: CARBON DIOXIDE 25 mEq/L (21-32); HDL CHOLESTEROL 30 mg/dL (40-59); LDL CHOLESTEROL 11 mg/dL (5-100)
[2017-03-10 11:53] LABS: HEMATOCRIT 23.5 % (42.0-52.0); HEMOGLOBIN 8.4 g/dL (14.0-18.0); MEAN CORPUSCULAR HEMOGLOBIN 30.2 pg (28.0-32.0); MEAN CORPUSCULAR VOLUME 84.5 fL (80.0-94.0); PLATELET 153 x1000/uL (130-400); RED BLOOD CELL COUNT 2.79 mill/uL (4.7-6.1); RED CELL DISTRIBUTION WIDTH 13.7 % (11.6-14.6)
[2017-03-10] MEDS ORDERED: POTASSIUM CHLORIDE INJ 20 MEQ in SODIUM CHLORIDE 0.9% 100 ML IV NR (13:00)
[2017-03-10] MEDS: DEXT 5%/0.45% NACL 1000ML 1,000 ML IV SCH ×2 (13:26→22:29)
[2017-03-10] MEDS: SUCRALFATE 1 G/10 ML UDC PO SCH ×2 (18:30→22:29)
[2017-03-11] VITALS (11 sets, daily range): BP systolic 110–128; BP diastolic 68–91
[2017-03-11] MEDS: DIPHENHYDRAMINE 50MG/ML VIAL IV PRN ×3 (03:14→16:19)
[2017-03-11] MEDS: MORPHINE SULFATE 2 MG/ML CPJ (NOT FOR IM USE) IV PRN ×3 (03:15→14:39)
[2017-03-11] MEDS: SODIUM CHLORIDE 0.9% INJ 3ML FLUSH IVF SCH ×2 (05:55→14:31)
[2017-03-11] MEDS ORDERED: SIMETHICONE 40 MG/0.6 ML 30ML ONE (08:02)
[2017-03-11] MEDS ORDERED: SODIUM CHLORIDE 0.9% 10ML VIAL ONE (08:02)
[2017-03-11] MEDS: SUCRALFATE 1 G/10 ML UDC PO SCH ×3 (08:22→18:25)
[2017-03-11] MEDS: FOLIC ACID/VITAMIN B COMP W-C TABLET PO SCH (08:23)
[2017-03-11] MEDS: PANTOPRAZOLE SODIUM 40 MG/VIAL IV SCH (08:23)
[2017-03-11 09:01] LABS: BASOPHILS % 0.7 % (0.0-2.0); EOSINOPHILS % 0.1 % (0.0-5.0); HEMOGLOBIN. 7.2 g/dL (14.0-18.0); MEAN CORPUSCULAR VOLUME 85.5 fL (80.0-94.0); MEAN PLATELET VOLUME 8.4 fl (7.4-10.4); MONOCYTES % 8.4 % (2.0-8.0); NEUTROPHILS % 54.8 % (40.0-76.0); PLATELET 157 x1000/uL (130-400); RED BLOOD CELL COUNT 2.39 mill/uL (4.7-6.1); RED CELL DISTRIBUTION WIDTH 14.2 % (11.6-14.6)
[2017-03-11 09:06] LABS: HEMATOCRIT. 20.4 % (42.0-52.0)
[2017-03-11 09:49] LABS: PHOSPHORUS 3.2 mg/dL (2.5-4.9)
[2017-03-11] MEDS ORDERED: MAGNESIUM 1 G PREMIX 100 ML IV NR (12:00)
[2017-03-11] MEDS ORDERED: POTASSIUM CHLORIDE INJ 20 MEQ in SODIUM CHLORIDE 0.9% 100 ML IV NR (12:00)
[2017-03-11 13:20] LABS: T4 FREE 0.96 ng/dL (0.76-1.46)
[2017-03-11] MEDS: DEXT 5%/0.45% NACL 1000ML 1,000 ML IV SCH (14:32)
[2017-03-14 10:58] LABS: HEMATOCRIT. 12.3 % (42.0-52.0)
== END 2017-03-11 19:10 | disposition home or self-care (01) | DRG 380 ==
LOC: ER 05:06 → 5EST 09:43 → EDBEDREQTM 09:48 → ENRESERV 10:26
PROVIDERS: ADMIT Family Medicine; ATTEND Family Medicine
PROC: 0DJ08ZZ Inspection of Upper Intestinal Tract, Via Natural or Artificial Opening Endoscopic (ICD-10-PCS; 2017-03-09)
PROC: 5A1D70Z Performance of Urinary Filtration, Intermittent, Less than 6 Hours Per Day (ICD-10-PCS; 2017-03-09)
PROC: 06HN33Z Insertion of Infusion Device into Left Femoral Vein, Percutaneous Approach (ICD-10-PCS; 2017-03-09)
PROC: B54CZZA Ultrasonography of Left Lower Extremity Veins, Guidance (ICD-10-PCS; 2017-03-09)
PROC: 30233N1 Transfusion of Nonautologous Red Blood Cells into Peripheral Vein, Percutaneous Approach (ICD-10-PCS; principal; 2017-03-09 16:00)
PROC: 5A1D70Z Performance of Urinary Filtration, Intermittent, Less than 6 Hours Per Day (ICD-10-PCS; 2017-03-11)
DX: K22.11 Ulcer of esophagus with bleeding (principal); N18.6 End stage renal disease; E43 Unspecified severe protein-calorie malnutrition; I12.0 Hypertensive chronic kidney disease with stage 5 chronic kidney disease or end stage renal disease; R64 Cachexia; E83.42 Hypomagnesemia; D62 Acute posthemorrhagic anemia; K70.31 Alcoholic cirrhosis of liver with ascites; N25.81 Secondary hyperparathyroidism of renal origin; Z68.1 Body mass index [BMI] 19.9 or less, adult; K80.20 Calculus of gallbladder without cholecystitis without obstruction; F10.10 Alcohol abuse, uncomplicated; Z99.2 Dependence on renal dialysis; K44.9 Diaphragmatic hernia without obstruction or gangrene; E87.6 Hypokalemia; D63.8 Anemia in other chronic diseases classified elsewhere; Z91.14 Patient's other noncompliance with medication regimen; Z79.899 Other long term (current) drug therapy
CPT/HCPCS: 36415; 36569; 71010; 71250; 76937; 80048; 80053; 80061; 82550; 82962; 83036; 83690; 83735; 83880; 84100; 84439; 84443; 84484; 85018; 85025; 85027; 85610; 85730; 86850; 86900; 86920; 93005; 96375; 96376; 99291; A4216; C1725; C9113; J0885; J1200; J2250; J2270; J3010; J3475; J3480; J3490; J7040; J7050; P9016

== ENCOUNTER 2017-04-11 22:41 | Inpatient (IN) | payer MEDICARE ==
[~2017-04-11] VITALS: Ht 167.6 cm; Wt 56.7 kg
[~2017-04-11 22:41] MED LIST changes: +CHOL20004 PO
[2017-04-11] MEDS ORDERED: ONDANSETRON HCL 4MG/2ML VIAL IV STA (23:02)
[2017-04-11] MEDS ORDERED: MORPHINE SULFATE 4 MG/ML CPJ (NOT FOR IM USE) IV STA (23:02)
[2017-04-11 23:26] LABS: CHLORIDE 100 mEq/L (98-107)
[2017-04-11 23:30] LABS: BASOPHILS % 1.3 % (0.0-2.0); MEAN CORPUSCULAR HEMOGLOBIN 29.9 pg (28.0-32.0); MEAN CORPUSCULAR VOLUME 90.3 fL (80.0-94.0); MEAN PLATELET VOLUME 7.1 fl (7.4-10.4); MONOCYTES % 6.2 % (2.0-8.0); NEUTROPHILS % 79.5 % (40.0-76.0); PLATELET 226 x1000/uL (130-400); RED BLOOD CELL COUNT 2.17 mill/uL (4.7-6.1); RED CELL DISTRIBUTION WIDTH 17.1 % (11.6-14.6)
[2017-04-11 23:32] LABS: CARBON DIOXIDE 26 mEq/L (21-32)
[2017-04-11 23:34] LABS: HEMATOCRIT. 19.6 % (42.0-52.0); HEMOGLOBIN. 6.5 g/dL (14.0-18.0)
[2017-04-11] MEDS ORDERED: PANTOPRAZOLE SODIUM 40 MG/VIAL IV STA (23:42)
[2017-04-12] MEDS ORDERED: ACETAMINOPHEN 325MG TABLET PO PRN (01:00)
[2017-04-12] MEDS ORDERED: CLONIDINE 0.1MG TABLET PO PRN (01:00)
[2017-04-12] MEDS ORDERED: ONDANSETRON HCL 4MG/2ML VIAL IV PRN (01:00)
[2017-04-12] MEDS ORDERED: IPRATROPIUM/ALBUTEROL 0.5-3(2.5)MG/3ML NEB INH PRN (01:00)
[2017-04-12] MEDS ORDERED: DIPHENHYDRAMINE 50MG/ML VIAL IV ONE (01:15)
[2017-04-12] MEDS ORDERED: HYDROMORPHONE HCL/PF 2MG/ML CPJ IV NR (02:45)
[2017-04-12] MEDS: HYDROMORPHONE HCL/PF 2MG/ML CPJ IV PRN ×5 (07:07→22:04)
[2017-04-12] MEDS ORDERED: PANTOPRAZOLE SODIUM 40 MG/VIAL IV SCH (09:00)
[2017-04-12] MEDS: AMLODIPINE 10MG TABLET PO SCH (09:00)
[2017-04-12 09:10] VITALS: BP 123/75
[2017-04-12 12:00] VITALS: BP 106/66
[2017-04-12] MEDS: DIPHENHYDRAMINE 50MG/ML VIAL IV PRN ×3 (13:41→23:07)
[2017-04-12 16:00] VITALS: BP 122/77
[2017-04-12 19:59] LABS: HEMATOCRIT 26.9 % (42.0-52.0); HEMOGLOBIN 9.2 g/dL (14.0-18.0)
[2017-04-12 20:00] VITALS: BP 123/86
[2017-04-12 20:06] LABS: INR 1.1; PROTHROMBIN TIME 11.1 sec (9.4-11.6)
[2017-04-12] MEDS ORDERED: EPOETIN ALFA 4000UNITS/ML VIAL SUBCUT SCH (21:00)
[2017-04-12] MEDS: PANTOPRAZOLE SODIUM 40 MG/VIAL IV SCH (21:17)
[2017-04-12] MEDS: METOPROLOL TARTRATE 25MG TABLET PO SCH (21:18)
[2017-04-13] VITALS: BP 115/79
[2017-04-13 01:41] LABS: HEMATOCRIT 24.2 % (42.0-52.0); HEMOGLOBIN 8.1 g/dL (14.0-18.0)
[2017-04-13] MEDS: HYDROMORPHONE HCL/PF 2MG/ML CPJ IV PRN ×4 (03:09→20:33)
[2017-04-13 04:00] VITALS: BP 113/76
[2017-04-13] MEDS: DIPHENHYDRAMINE 50MG/ML VIAL IV PRN ×3 (05:42→20:34)
[2017-04-13] MEDS: BLOOD SUGAR DIAGNOSTIC STRIP TEST SCH ×4 (06:34→20:34)
[2017-04-13] MEDS: DEXTROSE 50% WATER 50ML SYRINGE IV PRN ×2 (06:35→17:13)
[2017-04-13 07:03] LABS: BASOPHILS % 2.7 % (0.0-2.0); EOSINOPHILS % 1.4 % (0.0-5.0); HEMATOCRIT. 26.2 % (42.0-52.0); HEMOGLOBIN. 8.8 g/dL (14.0-18.0); LYMPHOCYTES % 30.9 % (20.0-50.0); MEAN CORPUSCULAR HEMOGLOBIN 28.4 pg (28.0-32.0); MEAN CORPUSCULAR VOLUME 85.1 fL (80.0-94.0); MEAN PLATELET VOLUME 7.5 fl (7.4-10.4); MONOCYTES % 10.8 % (2.0-8.0); NEUTROPHILS % 54.2 % (40.0-76.0); PLATELET 190 x1000/uL (130-400); RED BLOOD CELL COUNT 3.08 mill/uL (4.7-6.1); RED CELL DISTRIBUTION WIDTH 19.7 % (11.6-14.6)
[2017-04-13 07:36] LABS: CARBON DIOXIDE 30 mEq/L (21-32); CHLORIDE 100 mEq/L (98-107)
[2017-04-13 07:40] VITALS: BP 125/87
[2017-04-13] MEDS: INSULIN LISPRO 100 UNITS/ML SUBCUT SCH ×4 (08:06→21:11)
[2017-04-13] MEDS: FOLIC ACID/VITAMIN B COMP W-C TABLET PO SCH (08:36)
[2017-04-13] MEDS: PANTOPRAZOLE SODIUM 40 MG/VIAL IV SCH ×2 (08:36→20:33)
[2017-04-13] MEDS: METOPROLOL TARTRATE 25MG TABLET PO SCH ×2 (08:37→20:33)
[2017-04-13] MEDS: CHOLECALCIFEROL (D3) 1000 UNIT TABLET PO SCH (08:37)
[2017-04-13] MEDS: AMLODIPINE 10MG TABLET PO SCH (08:37)
[2017-04-13] MEDS ORDERED: BACTERIOSTATIC SODIUM CHLORIDE 0.9% 30ML VIAL IJ ONE (11:17)
[2017-04-13 11:33] LABS: PHOSPHORUS 3.8 mg/dL (2.5-4.9)
[2017-04-13 12:00] VITALS: BP 110/80
[2017-04-13 12:17] LABS: HEMATOCRIT 25.7 % (42.0-52.0); HEMOGLOBIN 8.5 g/dL (14.0-18.0)
[2017-04-13] MEDS ORDERED: FENTANYL CITRATE/PF 50MCG/ML 2ML VIAL ONE (14:03)
[2017-04-13] MEDS ORDERED: SIMETHICONE 40 MG/0.6 ML 30ML ONE (14:03)
[2017-04-13] MEDS ORDERED: MIDAZOLAM HCL 5 MG/5 ML VIAL ONE (14:03)
[2017-04-13] MEDS ORDERED: MIDAZOLAM HCL 5 MG/5 ML VIAL IV PRN (14:42)
[2017-04-13 16:00] VITALS: BP 98/60
[2017-04-13 19:11] LABS: HEMATOCRIT 26.7 % (42.0-52.0); HEMOGLOBIN 8.8 g/dL (14.0-18.0)
[2017-04-13 20:00] VITALS: BP 112/79
[2017-04-14] VITALS: BP 105/66
[2017-04-14] MEDS: DIPHENHYDRAMINE 50MG/ML VIAL IV PRN ×3 (03:52→15:07)
[2017-04-14] MEDS: HYDROMORPHONE HCL/PF 2MG/ML CPJ IV PRN ×3 (03:52→15:09)
[2017-04-14 04:00] VITALS: BP 124/79
[2017-04-14] MEDS: BLOOD SUGAR DIAGNOSTIC STRIP TEST SCH ×3 (06:50→17:40)
[2017-04-14 06:51] LABS: BASOPHILS % 1.5 % (0.0-2.0); EOSINOPHILS % 0.4 % (0.0-5.0); HEMATOCRIT. 25.2 % (42.0-52.0); HEMOGLOBIN. 8.5 g/dL (14.0-18.0); LYMPHOCYTES % 21.9 % (20.0-50.0); MEAN CORPUSCULAR VOLUME 85.6 fL (80.0-94.0); MEAN PLATELET VOLUME 7.8 fl (7.4-10.4); MONOCYTES % 8.1 % (2.0-8.0); NEUTROPHILS % 68.1 % (40.0-76.0); PLATELET 196 x1000/uL (130-400); RED BLOOD CELL COUNT 2.94 mill/uL (4.7-6.1); RED CELL DISTRIBUTION WIDTH 18.4 % (11.6-14.6)
[2017-04-14] MEDS: INSULIN LISPRO 100 UNITS/ML SUBCUT SCH ×3 (07:25→18:10)
[2017-04-14 08:30] VITALS: BP 123/85
[2017-04-14] MEDS: CHOLECALCIFEROL (D3) 1000 UNIT TABLET PO SCH (09:03)
[2017-04-14] MEDS: PANTOPRAZOLE SODIUM 40 MG/VIAL IV SCH (09:06)
[2017-04-14] MEDS: FOLIC ACID/VITAMIN B COMP W-C TABLET PO SCH (09:06)
[2017-04-14 09:48] VITALS: BP 119/84
[2017-04-14] MEDS: METOPROLOL TARTRATE 25MG TABLET PO SCH (09:49)
[2017-04-14] MEDS: AMLODIPINE 10MG TABLET PO SCH (09:49)
[2017-04-14] MEDS ORDERED: LIDOCAINE HCL 1% 20ML VIAL (Pyxis) INJ ONE (13:02)
[2017-04-14] MEDS ORDERED: SODIUM BICARBONATE 4% (2.4MEQ) 5ML VIAL IV ONE (13:02)
[2017-04-14 15:08] VITALS: BP 105/68
[2017-04-14 18:30] VITALS: BP 105/68
== END 2017-04-14 19:15 | disposition home or self-care (01) | DRG 380 ==
LOC: ER 22:49 → 7WST 04-12 00:19 → EDBEDREQ 04-12 00:21 → EDBEDREQTM 04-12 00:21 → SUPCPDRO 04-12 00:46
PROVIDERS: ADMIT Hospitalist; ATTEND Hospitalist
PROC: 30233N1 Transfusion of Nonautologous Red Blood Cells into Peripheral Vein, Percutaneous Approach (ICD-10-PCS; 2017-04-12)
PROC: 5A1D70Z Performance of Urinary Filtration, Intermittent, Less than 6 Hours Per Day (ICD-10-PCS; 2017-04-12)
PROC: 0DB68ZX Excision of Stomach, Via Natural or Artificial Opening Endoscopic, Diagnostic (ICD-10-PCS; principal; 2017-04-13 15:00)
PROC: 0W9G3ZZ Drainage of Peritoneal Cavity, Percutaneous Approach (ICD-10-PCS; 2017-04-14)
PROC: 5A1D70Z Performance of Urinary Filtration, Intermittent, Less than 6 Hours Per Day (ICD-10-PCS; 2017-04-14)
DX: K22.11 Ulcer of esophagus with bleeding (principal); E43 Unspecified severe protein-calorie malnutrition; E11.22 Type 2 diabetes mellitus with diabetic chronic kidney disease; E11.649 Type 2 diabetes mellitus with hypoglycemia without coma; D62 Acute posthemorrhagic anemia; K27.4 Chronic or unspecified peptic ulcer, site unspecified, with hemorrhage; N18.6 End stage renal disease; I12.0 Hypertensive chronic kidney disease with stage 5 chronic kidney disease or end stage renal disease; N25.81 Secondary hyperparathyroidism of renal origin; K29.61 Other gastritis with bleeding; K29.81 Duodenitis with bleeding; K70.31 Alcoholic cirrhosis of liver with ascites; K44.9 Diaphragmatic hernia without obstruction or gangrene; E55.9 Vitamin D deficiency, unspecified; F10.10 Alcohol abuse, uncomplicated; K80.20 Calculus of gallbladder without cholecystitis without obstruction; Z91.14 Patient's other noncompliance with medication regimen; Z99.2 Dependence on renal dialysis; Z79.899 Other long term (current) drug therapy; Z68.20 Body mass index [BMI] 20.0-20.9, adult
CPT/HCPCS: 36415; 49083; 80048; 80053; 82330; 82962; 83690; 83735; 84100; 84315; 85014; 85018; 85025; 85049; 85384; 85610; 86850; 86900; 86920; 87070; 87205; 88305; 88312; 88313; 89050; 93970; 96374; 96375; 99291; C9113; J0885; J1170; J1200; J1815; J2250; J2270; J2405; J3010; J3490; J7050; P9016